=== PATIENT | female | born 1995 | race Caucasian/White ===

== ENCOUNTER 2017-05-28 20:28 | Emergency (ER) | payer BC, OTHER ==
[~2017-05-28] VITALS: Ht 165.1 cm; Wt 54.4 kg
--- OUTSIDE RECORDS SUMMARY | 2017-05-28 20:35 | XMS REPORT ---
Author Author [facility] [employer] [facility] Medical Staff Organization [facility] Address [address], [place] [address] Phone [phone] Care Team Providers Care Boarder Machine Name Role Phone RENA MERCER APRN PP [phone] Summary purpose TRANSITION OF CARE AUTO GENERATION Chief Complaint and Reason for Visit No authorized Reason for Visit (Admitting Diagnosis) is available for this visit. Problem list No authorized problems tracked for continuity of care are available for this visit. Encounters No authorized problems tracked for encounter diagnoses are available for this visit. Medications No medications recorded for this patient visit Allergies, adverse reactions, alerts No allergy information is available for this patient. Immunizations No immunizations recorded for this patient visit Relevant diagnostic tests and/or laboratory data RESULTS Hematology [id number]:05:00 Result Normal Range Units WBC H 12.3 4.8-10.8 103/uL RBC 4.7 4.2-5.4 106/uL HGB 13.7 12.0-16.0 g/dl HCT 39.6 36.9-47.0 % MCV 84.8 81-99 FL MCH 29.3 27-31 pg MCHC 34.6 33-37 g/dl RDW 13.1 11.5-15.5 % PLT 302 130-400 103/uL MPV 9.7 7.3-10.4 FL Segs 66.0 40-70 % Bands H 10.0 0-5 % Lymphs L 11.0 20-40 % [place] H 12.0 0-10 % Eos 1.0 0-7 % Atypical Lymphs 0.0 0-5 % Radiology Results [id number]:00 Result Normal Range Units MPV 9.7 7.3-10.4 FL History of procedures No procedures recorded for this patient visit. Functional status No functional or cognitive status observations are available for this visit. Vital signs No authorized vital signs are available for this visit. Social history No Social History or smoking status observations were recorded for this visit. ( Unknown if ever smoked.) Treatment Plan No treatment plan text is available for this visit. Hospital discharge instructions No discharge instruction text is available for this visit.
--- OUTSIDE RECORDS SUMMARY | 2017-05-28 20:35 | XMS REPORT ---
Author Author ALBERT ZAPIEN [facility] Address [address] [facility] [address] [place], [place] [address] Care Team Providers Care Oil Spot Washer Name Role Phone ALBERT ZAPIEN PCP Unavailable Allergies and Adverse Reactions Name Reaction Notes Cedax PENICILLINS Plan of Treatment Planned Activity Comments Planned Date Planned Time Plan/Goal MRI JOINT UPR EXTREM W/O DYE 08/09/2013 12:00 AM X-RAY EXAM OF SHOULDER 08/09/2013 12:00 AM Medications Active Name Start Date Estimated Completion Date SIG Comments Lamictal 25 mg oral tablet take 2 tablets (50 mg) by oral route 2 times per day for 30 days trazodone 50 mg oral tablet take 1 tablet by oral route for 30 days alprazolam 0.25 mg oral tablet take 1 tablet by oral route 2 times a day for 30 days Bactrim DS 800-160 mg oral tablet 09/04/2014 take 1 tablet by oral route 2 times a day for 10 days Flonase 50 mcg/actuation nasal spray,suspension 09/04/2014 inhale 1 spray by nasal route 2 times a day Nexplanon 68 mg subdermal implant 08/29/2014 implant 1 by subdermal route Zithromax Z-Candelario 250 mg oral tablet 10/10/2014 take 2 tablets (500 mg) by oral route once daily for 1 day then 1 tablet (250 mg) by oral route once daily for 4 days Name Start Date Expiration Date SIG Comments Medrol (Candelario) 4 mg oral tablets,dose pack 03/02/2012 03/02/2012 take as directed Zithromax Z-Candelario 250 mg oral tablet 03/02/2012 03/07/2012 take 2 tablets (500 mg ) by oral route once daily for 1 day then 1 tablet (250 mg) by oral route once daily for 4 days Antivert 25 mg oral tablet 03/11/2012 1-2 every 6 hrs as needed for dizziness amoxicillin 500 mg oral tablet 03/11/2012 03/31/2012 take 1 tablet (500 mg) by oral route every 12 hours for 20 days Celexa 40 mg oral tablet 05/30/2013 08/28/2013 take 1 tablet (40 mg) by oral route once daily for 30 days Zithromax Z-Candelario 250 mg oral tablet 08/31/2013 take 2 tablets (500 mg) by oral route once daily for 1 day then 1 tablet (250 mg) by oral route once daily for 4 days Zithromax Z-Candelario 250 mg oral tablet 02/28/2014 take 2 tablets (500 mg) by oral route once daily for 1 day then 1 tablet (250 mg) by oral route once daily for 4 days Medrol (Candelario) 4 mg oral tablets,dose pack 02/28/2014 03/05/2014 take as directed for 5 days Zithromax Z-Candelario 250 mg oral tablet 07/04/2014 07/09/2014 take 2 tablets (500 mg ) by oral route once daily for 1 day then 1 tablet (250 mg) by oral route once daily for 4 days Discontinued Name Start Date Discontinued Date SIG Comments fluoxetine 10 mg oral capsule 08/27/2012 05/30/2013 take 1 capsule po daily for 7 days then 2 caps po daily for 21 days Abilify 2 mg oral tablet 08/15/2014 take 0.5 tablet by oral route daily for 30 days Imitrex 50 mg oral tablet 10/13/2013 08/15/2014 take 1 tablet (50 mg) by oral route once with fluids as early as possible after the onset of a migraine attack ;may repeat after 2 hours if h Problem List Description Status Onset Anxiety disorder Active 05/31/2013 Depressive Disorder Active 05/31/2013 History of suicide attempt Active 09/27/2014 Vital Signs Date Time BP-Sys(mm[Hg] BP-Regina(mm[Hg]) HR(bpm) RR(rpm) Temp WT HT HC BMI BSA BMI Percentile O2 Sat(%) 11/30/2015 11:02:00 AM 92 mmHg 60 mmHg 66 bpm 18 rpm 98.2 F 121 lbs 66 in 19.53 kg/m2 1.60 m2 22.2 % 97 % 10/09/2014 4:05:00 PM 110 mmHg 60 mmHg 74 bpm 18 rpm 96.1 F 116 lbs 65 in 19.3032 kg/m 1.5534 m 22.3 % 98 % 09/26/2014 3:52:00 PM 95 mmHg 60 mmHg 62 bpm 18 rpm 97.5 F 117 lbs 65 in 19.47 kg/m2 1.56 m2 24.7 % 99 % 08/31/2014 1:52:00 PM 110 mmHg 60 mmHg 90 bpm 18 rpm 99.3 F 112 lbs 65 in 18.6376 kg/m 1.5264 m 14.4 % 99 % 08/29/2014 9:08:00 AM 106 mmHg 70 mmHg 97 bpm 98.1 F 112 lbs 65 in 18.64 kg/m2 1.53 m2 14.4 % 08/15/2014 11:28:00 AM 103 mmHg 71 mmHg 70 bpm 20 rpm 97.5 F 113 lbs 65 in 18.804 kg/m 1.5332 m 16.5 % 08/15/2014 10:08:00 AM 102 mmHg 68 mmHg 87 bpm 16 rpm 96.7 F 110.25 lbs 65 in 18.35 kg/m2 1.51 m2 11.3 % 100 % 05/08/2014 2:38:00 PM 98 mmHg 56 mmHg 60 bpm 16 rpm 97.1 F 115 lbs 65 in 19.1368 kg/m 1.5467 m 21.8 % 99 % 02/28/2014 10:03:00 AM 110 mmHg 60 mmHg 76 bpm 16 rpm 98.5 F 115 lbs 65 in 19.14 kg/m2 1.55 m2 22.7 % 100 % 02/13/2014 3:18:00 PM 116 mmHg 64 mmHg 64 bpm 16 rpm 98.5 F 115 lbs 65 in 19.1368 kg/m 1.5467 m 22.9 % 97 % 10/13/2013 2:40:00 PM 90 mmHg 60 mmHg 58 bpm 16 rpm 98.6 F 111 lbs 65 in 18.47 kg/m2 1.52 m2 15.9 % 99 % 08/31/2013 8:52:00 AM 100 mmHg 60 mmHg 64 bpm 16 rpm 96.3 F 108 lbs 65 in 17.972 kg/m 1.4989 m 10.8 % 100 % 08/26/2013 8:47:00 AM 110 mmHg 60 mmHg 60 bpm 20 rpm 98 F 110 lbs 65 in 18.30 kg/m2 1.51 m2 14.5 % 08/09/2013 9:00:00 AM 110 mmHg 62 mmHg 78 bpm 16 rpm 96.1 F 109 lbs 66 in 17.5929 kg/m 1.5173 m 7.2 % 100 % 07/07/2013 9:57:00 AM 100 mmHg 60 mmHg 66 bpm 16 rpm 96.4 F 108 lbs 64 in 18.54 kg/m2 1.49 m2 18 % 98 % 05/30/2013 11:09:00 AM 110 mmHg 60 mmHg 56 bpm 16 rpm 97.7 F 109 lbs 64 in 18.7096 kg/m 1.4942 m 20.8 % 100 % 03/11/2012 7:47:00 AM 106 mmHg 60 mmHg 80 bpm 20 rpm 105 lbs 64 in 18.02 kg/m2 1.47 m2 19 % 99 % 12/15/2011 1:23:00 PM 102 mmHg 70 mmHg 76 bpm 109 lbs 65 in 18.1384 kg/m 1.5058 m 22.1 % 10/15/2010 10:59:00 AM 72 bpm 18 rpm 101.312 lbs Social History Name Description Comments Tobacco Never smoker denies alcohol use History of Procedures Date Ordered Description Order Status 08/31/2013 12:00 AM THER/PROPH/DIAG INJ SC/IM Reviewed 08/31/2013 12:00 AM Decadron 8 Mg [facility]# [address]-11 Reviewed 08/31/2013 12:00 AM Depo-Medrol, Per 80 Mg [facility]#[id number] Reviewed 05/09/2014 12:00 AM COMPLETE CBC W/AUTO DIFF WBC Returned 05/09/2014 12:00 AM COMPREHEN METABOLIC PANEL Returned 05/09/2014 12:00 AM ROUTINE VENIPUNCTURE Reviewed 05/09/2014 12:00 AM HETEROPHILE ANTIBODY SCREEN Returned 05/09/2014 12:00 AM ASSAY OF FREE THYROXINE Returned 05/09/2014 12:00 AM ASSAY THYROID STIM HORMONE Returned 08/15/2014 12:09 PM URINE TEST Reviewed 08/15/2014 12:00 AM COMPLETE CBC AUTOMATED Returned 08/15/2014 12:00 AM CHORIONIC GONADOTROPIN TEST Returned 08/15/2014 12:00 AM CHLAMYDIA CULTURE Returned 08/15/2014 12:00 AM N.GONORRHOEAE DNA AMP PROB Returned 08/29/2014 9:19 AM URINE TEST Reviewed 08/29/2014 12:00 AM INSERT DRUG IMPLANT DEVICE Reviewed 08/29/2014 12:00 AM NEXPLANON (Etonogestrel implant) [facility] #[id number] Reviewed Results Summary Data and Description Results 05/09/2014 3:57 PM WBC 9.4 RBC 4.72 HGB 13.70 g/dLHCT 39.90 %MCV 85.0 fLMCH 29.0 pgMCHC 34.30 g/dLRDW CV 12.50 %MPV 10.0 fLPLT 334 %NEUT 61.80 %%LYMP 23.10 %%MONO 12.40 %%EOS 2.20 %%BASO 0.50 %#NEUT 5.77 #LYMP 2.16 #MONO 1.16 #EOS 0.21 #BASO 0.05 MONO TEST NEGATIVE GLUCOSE 78.0 mg/dLSODIUM 137.0 mmol/LPOTASSIUM 4.20 mmol/LCHLORIDE 104.0 mmol/LCO2 23.0 mmol/LBUN 12.0 mg/dLCREATININE 0.70 mg/ dLSGOT/AST 18.0 IU/LSGPT/ALT 15.0 IU/LALK PHOS 65.0 IU/LTOTAL PROTEIN 7.0 g/ dLALBUMIN 4.60 g/dLTOTAL BILI 0.90 mg/dLCALCIUM 10.10 mg/dLeGFR N/A mL/min/1.73 m2TSH 1.470 uIU/mL 08/15/2014 12:09 PM HCG Ur Ql negative 08/15/2014 12:25 PM WBC 4.7 RBC 4.74 HGB 13.80 g/dLHCT 40.40 %MCV 85.0 fLMCH 29.10 pgMCHC 34.20 g/dLRDW CV 12.70 %MPV 9.20 fLPLT 280 %NEUT 39.90 %%LYMP 36.20 %%MONO 19.70 %%EOS 3.60 %%BASO 0.60 %#NEUT 1.89 #LYMP 1.71 #MONO 0.93 # EOS 0.17 #BASO 0.03 EOS 3.0 %BETA HCG QUANT <1 MIU/ML 08/29/2014 9:19 AM HCG Ur Ql negative History Of Immunizations Not available. History of Past Illness Name Date of Onset Comments Anxiety disorder 05/31/2013 Depressive Disorder 05/31/2013 Gastroenteritis, Viral 08/24/2014 of which has spontaneously resolved History of suicide attempt 09/27/2014 Pain in joint; ankle and foot, left Oct 15 2010 10:58AM Pharyngitis, Acute Dec 15 2011 1:25PM Post-nasal drainage Dec 15 2011 1:25PM Dizziness Mar 11 2012 7:48AM Seasonal Allergies Mar 11 2012 7:48AM Sinusitis, Acute Mar 11 2012 7:48AM Anxiety Disorder May 30 2013 11:09AM Depressive Disorder May 30 2013 11:09AM Pityriasis Rosea Jul 07 2013 9:58AM Right Pain in joint; shoulder region Aug 09 2013 9:08AM Pain in joint; shoulder region, Right Aug 09 2013 9:01AM Sports Physical Exam Aug 26 2013 8:48AM Pharyngitis, Acute Aug 31 2013 8:52AM Post-nasal drainage Aug 31 2013 8:52AM Headache Oct 13 2013 2:41PM Anxiety Disorder Oct 13 2013 2:41PM Depressive Disorder Oct 13 2013 2:41PM Sports Physical Exam Feb 13 2014 3:18PM Eustachian Tube Dysfunction Feb 28 2014 10:04AM Pharyngitis, Acute Feb 28 2014 10:04AM Post-nasal drainage Feb 28 2014 10:04AM Anxiety Disorder May 09 2014 8:21AM Depressive Disorder May 09 2014 8:21AM Fatigue May 09 2014 8:21AM Malaise and fatigue May 08 2014 2:38PM Abnormal Uterine Bleeding Aug 15 2014 11:32AM Menorrhagia Aug 15 2014 11:32AM Metrorrhagia Aug 15 2014 11:32AM High-Risk Sexual Behavior Aug 15 2014 11:32AM Gastroenteritis, Viral Aug 15 2014 10:08AM Abnormal uterine bleeding Aug 15 2014 10:08AM Mood swings Aug 15 2014 10:08AM Special investigations and examinations; examination or test; examination or test, negative result Aug 29 2014 9:19AM NEXPLANON Insertion Aug 29 2014 9:17AM Upper Respiratory Infection Aug 31 2014 1:53PM Labyrinthitis Aug 31 2014 1:53PM Sinus pressure Aug 31 2014 1:53PM Headache Sep 26 2014 3:54PM Anxiety Disorder Sep 26 2014 3:54PM Depressive Disorder Sep 26 2014 3:54PM History of suicide attempt Sep 26 2014 3:54PM Cough Oct 09 2014 4:06PM Pharyngitis, Acute Oct 09 2014 4:06PM Post-nasal drainage Oct 09 2014 4:06PM Upper Respiratory Infection Oct 09 2014 4:06PM Eustachian tube dysfunction, bilateral Nov 30 2015 11:02AM Seasonal Allergies Nov 30 2015 11:02AM Mild Acute Post-nasal drainage Nov 30 2015 11:02AM Mild Acute Nasal congestion Nov 30 2015 11:02AM Payers Insurance Name Company Name Plan Name Plan Number Policy Number Policy Group Number Start Date Benson Rule [employer] Insurance Compnay [id number] N/A [facility] [id number] N/A [employer] [id number] N/A [employer] [id number] N/A History of Encounters Visit Date Visit Type Provider 11/30/2015 Office visit ALBERT JAMES 10/09/2014 Office visit ALBERT JAMES 09/26/2014 Office visit ALBERT JAMES 08/31/2014 Office visit ALBERT JAMES 08/29/2014 Office visit Wilian Ayala MD 08/15/2014 Office visit Veronica Carbajal APRN 08/15/2014 Office visit ALBERT JAMES 05/09/2014 Office visit ALBERT JAMES 05/08/2014 Office visit ALBERT JAMES 02/28/2014 Office visit ALBERT JAMES 02/13/2014 Office visit ALBERT JAMES 10/13/2013 Office visit ALBERT JAMES 08/31/2013 Office visit ALBERT JAMES 08/26/2013 Office visit ALBERT JAMES 08/09/2013 Office visit ALBERT JAMES 07/07/2013 Office visit ALBERT JAMES 05/30/2013 Office visit ALBERT JAMES 03/11/2012 Office visit ALBERT JAMES 12/15/2011 Office visit ALBERT JAMES 10/15/2010 Office visit Albert Zaipen PA-C
--- OUTSIDE RECORDS SUMMARY | 2017-05-28 20:35 | XMS REPORT ---
Author Author [facility] Medical Staff Organization [facility] Address [address], [place] [address] Phone [phone] Care Team Providers Care Clock Assembler Name Role Phone RENA MERCER APRN, PP [phone] Summary purpose TRANSITION OF CARE AUTO GENERATION Chief Complaint and Reason for Visit Admit Diagnosis 1 NAUSEA WITH VOMITING Problem list No authorized problems tracked for [...] diagnostic tests and/or laboratory data RESULTS Hematology [id number]:05:00 Result Normal Range Units WBC H 12.3 4.8-10.8 103/uL RBC 4.7 4.2-5.4 106/uL HGB 13.7 12.0-16.0 g/dl HCT 39.6 36.9-47.0 % MCV 84.8 81-99 FL MCH 29.3 27-31 pg MCHC 34.6 33-37 g/dl RDW 13.1 11.5-15.5 % PLT 302 130-400 103/uL MPV 9.7 7.3-10.4 FL Segs 66.0 40-70 % Bands H 10.0 0-5 % Lymphs L 11.0 20-40 % [place] H 12.0 0-10 % Eos 1.0 0-7 % Atypical Lymphs 0.0 0-5 % Radiology Results [id number]:05:00 Result Normal Range Units MPV 9.7 7.3-10.4 FL History of procedures Procedure Code Code Type Description Date Performed Performing Physician 56548 CPT-4 HETEROPHILE ANTIBODIES 10-25-2014 RENA MERCER [id number] CPT-4 COMPLETE CBC, AUTOMATED 10-25-2014 RENA MERCER [id number] CPT-4 BL SMEAR W/DIFF WBC COUNT 10-25-2014 RENA MERCER Functional status No functional or cognitive status [...]
[2017-05-28] MEDS ORDERED: NS IV 1000 ML 1,000 ML IV ONE (21:24)
[2017-05-28] MEDS ORDERED: ACETAMINOPHEN 325 MG TABLET/CAPLET (TYLENOL) PO STA (21:27)
[2017-05-28 21:49] LABS: BASOPHILS # (AUTO) 0.1 10^3/uL (0.0-0.1); BASOPHILS % (AUTO) 1 % (0-10); EOSINOPHILS # (AUTO) 0.1 10^3/uL (0.0-0.3); EOSINOPHILS % (AUTO) 1 % (0-10); LYMPHOCYTES # (AUTO) 1.8 X 10^3 (1.0-4.0); LYMPHOCYTES % (AUTO) 20 % (12-44); MEAN CORPUSCULAR HEMOGLOBIN 30 PG (25-34); MEAN CORPUSCULAR HGB CONC 35 G/DL (32-36); MEAN CORPUSCULAR VOLUME 86 FL (80-99); MEAN PLATELET VOLUME 8.9 FL (7.4-10.4); MONOCYTES # (AUTO) 1.8 X 10^3 (0.0-1.0); MONOCYTES % (AUTO) 21 % (0-12); NEUTROPHILS # (AUTO) 5.1 X 10^3 (1.8-7.8); NEUTROPHILS % (AUTO) 58 % (42-75); PLATELET COUNT 333 10^3/uL (130-400); RED BLOOD COUNT 4.72 10^6/uL (4.35-5.85); RED CELL DISTRIBUTION WIDTH 12.4 % (10.0-14.5); WHITE BLOOD COUNT 8.8 10^3/uL (4.3-11.0)
[2017-05-28 22:05] LABS: BAND NEUTROPHILS 6 %; BASOPHILS % (MANUAL) 0 %; EOSINOPHILS % (MANUAL) 0 %; LYMPHOCYTES % (MANUAL) 28 %; NEUTROPHILS % (MANUAL) 52 %
[2017-05-28 22:15] LABS: ALANINE AMINOTRANSFERASE 25 U/L (0-55); ALBUMIN 4.8 GM/DL (3.2-4.5); ANION GAP 12 MMOL/L (5-14); ASPARTATE AMINO TRANSFERASE 24 U/L (5-34); BILIRUBIN,TOTAL 0.4 MG/DL (0.1-1.0); BLOOD UREA NITROGEN 9 MG/DL (7-18); BUN/CREATININE RATIO 11; CALCIUM 10.1 MG/DL (8.5-10.1); CARBON DIOXIDE 25 MMOL/L (21-32); CHLORIDE 101 MMOL/L (98-107); CREATININE SERUM 0.79 MG/DL (0.60-1.30); GFR ESTIMATED > 60; GLUCOSE 80 MG/DL (70-105); POTASSIUM 3.9 MMOL/L (3.6-5.0); SODIUM 138 MMOL/L (135-145)
[2017-05-28 22:39] LABS: BILIRUBIN,URINE NEGATIVE (NEGATIVE); KETONES,URINE NEGATIVE (NEGATIVE); LEUKOCYTE ESTERASE ,URINE 3+ (NEGATIVE); NITRITE,URINE NEGATIVE (NEGATIVE); PH,URINE 6.5 (5-9); PROTEIN,URINE 1+ (NEGATIVE); UROBILINOGEN,URINE NORMAL (NORMAL)
[2017-05-28 22:50] LABS: SQUAMOUS EPITHELIAL CELL,UR >50 /HPF; WBC,URINE 25-50 /HPF
[2017-05-28] MEDS ORDERED: DEXAMETHASONE 10 MG/ML (DECADRON) 1 ML VIAL ONE (22:52)
[2017-05-28] MEDS ORDERED: RX-TRIMETH/SULFA. 160-800 MG (BACTRIM DS) TAB PPK#2 PO ONE (22:52)
[2017-05-28] MEDS ORDERED: RX-TRIMETH/SULFA. 160-800 MG (BACTRIM DS) TAB PPK#2 PO STA (22:52)
[2017-05-28] MEDS ORDERED: DEXAMETHASONE 10 MG/ML (DECADRON) 1 ML VIAL IM ONE (23:00)
[2017-05-28] MEDS ORDERED: SULF1TAB35 PO (23:06)
--- NOTE | 2017-05-28 23:06 | ED Cough/URI ---
General Chief Complaint: Cough/Cold/Flu Symptoms Stated Complaint: FEVER,CONGESTION Nursing Triage Note: PATIENT HAS BEEN COUGHING AND RUNNING A FEVER INTERMIT. FOR THE PAST THREE WEEKS. History of Present Illness Time seen by provider: 21:00 Initial Comments 21-year-old female reports she's had upper respiratory infection for the last 3 weeks. She's been seen at the [facility] and started on DayQuil. Her symptoms are not improving. She reports sinus congestion and cough. She does report having a fever intermittently. She reports taking ibuprofen 400 mg approximately 2 hours ago. Timing/Duration: getting worse Severity/Quality: mild, dry cough Prior Episodes/Possible Cause: no prior episodes Associated Symptoms: cough, dizziness, fever/chills, lightheadedness, nasal congestion Allergies and Home Medications Allergies Coded Allergies: Penicillins (Verified Allergy, Unknown, 05/28/17) Pts never taken PCN, everyone in her family has severe rxn to PCNs Home Medications Sulfamethoxazole/Trimethoprim 1 Each Tablet, 1 EACH PO BID, #6 Ref 0 Prescribed by: SOHAM EDOUARD on 05/28/17 8813 Constitutional: no symptoms reported, see HPI Respiratory: see HPI, cough Gastrointestinal: no symptoms reported, see HPI, No diarrhea, No nausea, No vomiting All Other Systems Reviewed Negative Unless Noted: Yes Past Ajgkzjp-Dhusgy-Enfcll Hx Patient Social History Recent Foreign Travel: No Contact w/Someone Who Travel: No Recent Infectious Disease Expo: No Reviewed Nursing Assessment Reviewed/Agree w Nursing PMH: Yes Physical Exam Vital Signs Vital Sign - Last 12Hours 05/28/17 21:05 Temp 100.0 Pulse 102 Resp 22 B/P (MAP) 110/80 (90) Pulse Ox 97 O2 Delivery Room Air Capillary Refill : Less Than 3 Seconds General Appearance: WD/WN, no apparent distress Eyes: Bilateral Eye Normal Inspection, Bilateral Eye PERRL, Bilateral Eye EOMI HEENT: PERRL/EOMI, normal ENT inspection, TMs normal, pharynx normal Neck: non-tender, full range of motion, supple, normal inspection, No lymphadenopathy (R), No lymphadenopathy (L) Respiratory: chest non-tender, lungs clear, normal breath sounds Cardiovascular: normal peripheral pulses, regular rate, rhythm, no murmur Gastrointestinal: normal bowel sounds, non tender, soft Extremities: normal range of motion, non-tender, other (trace CVAT right negative on the left.) Neurologic/Psychiatric: no motor/sensory deficits, alert, normal mood/affect, oriented x 3 Skin: normal color, warm/dry Lymphatic: no adenopathy Progress/Results/Core Measures Suspected Sepsis Recent Fever Within 48 Hours: Yes Infection Criteria Present: Suspected New Infection New/Unexplained Altered Menta: No Sepsis Screen: Possible Sepsis Risk Sepsis Diagnosis: SIRS Temperature:100.0 Pulse: 102 Respiratory Rate: 22 Laboratory Tests 05/28/17 21:40: White Blood Count 8.8 Blood Pressure 110 /80 Mean: 90 Laboratory Tests 05/28/17 21:40: Creatinine 0.79, Platelet Count 333, Total Bilirubin 0.4 Results/Orders Lab Results Laboratory Tests Test 05/28/17 21:40 05/28/17 22:30 Range/Units White Blood Count 8.8 4.3-11.0 10^3/uL Red Blood Count 4.72 4.35-5.85 10^6/uL Hemoglobin 14.0 11.5-16.0 G/DL Hematocrit 41 35-52 % Mean Corpuscular Volume 86 80-99 FL Mean Corpuscular Hemoglobin 30 25-34 PG Mean Corpuscular Hemoglobin Concent 35 32-36 G/DL Red Cell Distribution Width 12.4 10.0-14.5 % Platelet Count 333 130-400 10^3/uL Mean Platelet Volume 8.9 7.4-10.4 FL Neutrophils (%) (Auto) 58 42-75 % Lymphocytes (%) (Auto) 20 12-44 % Monocytes (%) (Auto) 21 H 0-12 % Eosinophils (%) (Auto) 1 0-10 % Basophils (%) (Auto) 1 0-10 % Neutrophils # (Auto) 5.1 1.8-7.8 X 10^3 Lymphocytes # (Auto) 1.8 1.0-4.0 X 10^3 Monocytes # (Auto) 1.8 H 0.0-1.0 X 10^3 Eosinophils # (Auto) 0.1 0.0-0.3 10^3/uL Basophils # (Auto) 0.1 0.0-0.1 10^3/uL Neutrophils % (Manual) 52 % Lymphocytes % (Manual) 28 % Monocytes % (Manual) 14 % Eosinophils % (Manual) 0 % Basophils % (Manual) 0 % Band Neutrophils 6 % Blood Morphology Comment NORMAL Sodium Level 138 135-145 MMOL/L Potassium Level 3.9 3.6-5.0 MMOL/L Chloride Level 101 98-107 MMOL/L Carbon Dioxide Level 25 21-32 MMOL/L Anion Gap 12 5-14 MMOL/L Blood Urea Nitrogen 9 7-18 MG/DL Creatinine 0.79 0.60-1.30 MG/DL Estimat Glomerular Filtration Rate > 60 BUN/Creatinine Ratio 11 Glucose Level 80 70-105 MG/DL Calcium Level 10.1 8.5-10.1 MG/DL Total Bilirubin 0.4 0.1-1.0 MG/DL Aspartate Amino Transf (AST/SGOT) 24 5-34 U/L Alanine Aminotransferase (ALT/SGPT) 25 0-55 U/L Alkaline Phosphatase 69 40-136 U/L Total Protein 8.0 6.4-8.2 GM/DL Albumin 4.8 H 3.2-4.5 GM/DL Monoscreen NEGATIVE NEGATIVE Urine Color YELLOW Urine Clarity SLIGHTLY CLOUDY Urine pH 6.5 5-9 Urine Specific Wiley 1.010 L 1.016-1.022 Urine Protein 1+ H NEGATIVE Urine Glucose (UA) NEGATIVE NEGATIVE Urine Ketones NEGATIVE NEGATIVE Urine Nitrite NEGATIVE NEGATIVE Urine Bilirubin NEGATIVE NEGATIVE Urine Urobilinogen NORMAL NORMAL MG/DL Urine Leukocyte Esterase 3+ H NEGATIVE Urine RBC (Auto) 1+ H NEGATIVE Urine RBC 2-5 H /HPF Urine WBC 25-50 H /HPF Urine Squamous Epithelial Cells >50 H /HPF Urine Crystals NONE /LPF Urine Bacteria LARGE H /HPF Urine Casts NONE /LPF Urine Mucus NEGATIVE /LPF Urine Culture Indicated YES Micro Results Microbiology 05/28/17 Influenza Types A,B Antigen (RK) - Final, Complete My Orders Orders - SOHAM EDOUARD Influenza A And B Antigens (05/28/17 21:12) Cbc With Automated Diff (05/28/17 21:24) Comprehensive Metabolic Panel (05/28/17 21:24) Monotest (05/28/17 21:24) Ua Culture If Indicated (05/28/17 21:24) Saline Lock/Iv-Start (05/28/17 21:24) Ns Iv 1000 Ml (Sodium Chloride 0.9%) (05/28/17 21:24) Acetaminophen Tablet/Caplet (Tylenol T (05/28/17 21:27) Manual Differential (05/28/17 21:40) Urine Culture (05/28/17 22:30) Dexamethasone Injection (Decadron Inject (05/28/17 23:00) Rx-Trimeth/Sulfameth Ds Tab (Rx-Bactrim/ (05/28/17 22:52) Dexamethasone Injection (Decadron Inject (05/28/17 22:52) Rx-Trimeth/Sulfameth Ds Tab (Rx-Bactrim/ (05/28/17 22:52) Medications Given in ED Current Medications Medications Dose Ordered Sig/Alma Route Start Time Stop Time Status Last Admin Dose Admin Dexamethasone Sodium Phosphate 10 mg ONCE ONCE IM 05/28/17 23:00 05/28/17 23:16 DC 05/28/17 23:08 10 MG Sodium Chloride 1,000 ml @ 0 mls/hr Q0M ONCE IV 05/28/17 21:24 05/28/17 21:27 DC 05/28/17 21:46 0 MLS/HR Vital Signs/I&O Vital Sign - Last 12Hours 05/28/17 05/28/17 21:05 21:33 Temp 100.0 100.0 Pulse 102 Resp 22 B/P (MAP) 110/80 (90) Pulse Ox 97 O2 Delivery Room Air Capillary Refill : Less Than 3 Seconds Blood Pressure Mean: 90 Progress Note : Time: 21:00 Progress Note Initial evaluation completed, recommended labs, Tylenol 650 mg by mouth and normal saline 1 L IV 2200 labs all essentially normal, negative mono, negative influenza, CBC and CMP within normal limits. Awaiting UA. 2230 UA shows acute cystitis. Bactrim DS 1 by mouth now and Decadron 10 mg IV. 2245 discharge instructions reviewed with the patient and her mother, all questions answered and return precautions discussed. Departure Impression Impression: Primary Impression: Upper respiratory infection Qualified Codes: J06.9 - Acute upper respiratory infection, unspecified; B97.89 - Other viral agents as the cause of diseases classified elsewhere Additional Impression: Urinary tract infection Qualified Codes: N30.01 - Acute cystitis with hematuria Disposition: HOME, SELF-CARE Condition: Stable Departure-Patient Inst. Decision time for Depature: 22:50 Referrals: NO,LOCAL PHYSICIAN (PCP/Family) Primary Care Physician Patient Instructions: Urinary Tract Infection, Adult (DC), Viral Upper Respiratory Infection, Adult (DC) Add. Discharge Instructions: Increase water intake, 16 ounces every 2-3 hours. Empty bladder frequently. Take antibiotic as prescribed for urinary tract infection. Mucinex one tablet twice daily with one glass of water. Follow-up at [facility] if symptoms are not improving tomorrow and early next week for culture results from urine Alternate ibuprofen 600 mg and acetaminophen 650 mg every 4 hours for pain or fever Return to emergency department for fever greater than 101, difficulty breathing , or new problems. All discharge instructions reviewed with patient and/or family. Voiced understanding. Scripts Sulfamethoxazole/Trimethoprim (Bactrim Ds Tablet) 1 Each Tablet 1 EACH PO BID, #6 TAB 0 Refills Prov: SOHAM EDOUARD 05/28/17 Copy Copies To 1: YVETTE WEST MD, AMY ARNP May 28, 2017 23:06
[2017-05-28 23:16] VITALS: BP 140/62
== END 2017-05-28 23:16 | disposition home or self-care (01) ==
LOC: ER 20:31
DX: J06.9 Acute upper respiratory infection, unspecified (principal); N39.0 Urinary tract infection, site not specified
CPT/HCPCS: 36415; 80053; 81000; 85007; 85027; 86308; 87088; 87804; 99283